=== PATIENT | female | born 1990 | race Caucasian/White ===

== ENCOUNTER 2017-04-25 23:32 | Emergency (ER) | payer OTHER ==
[2017-04-26] MEDS ORDERED: NORMAL SALINE 1000 ML 1,000 ML IV PRN (00:56)
[2017-04-26] MEDS ORDERED: METOCLOPRAMIDE HCL INJ/PF 10 MG/2 ML SDV IV ONE (00:56)
--- NOTE | 2017-04-26 00:59 | ER Document Report ---
ED General - General Chief Complaint: Nausea/Vomiting Stated Complaint: NAUSEA AND ABDOMINAL PAIN Time Seen by Provider: 04/26/17 00:51 Notes: Patient is a 26-year-old female who presents with complaints of vomiting and . She is 10 weeks . She says since she was 7 weeks she has had some nausea and intermittent vomiting. She says the last 24-48 hours her vomiting has been intractable and she cannot hold down to even her medications. She is prescribed likely just by her terrazzo tile setter. She has been unable to hold this down. She is also prescribed ranitidine which she cannot hold down. She has had no social abdominal pain. No diarrhea. No fevers. No other complaints at this time. No complications with this thus far. No vaginal bleeding. She has had ultrasounds for this which were normal per her history. She called her terrazzo tile setter kylah who told her to come to the ER. TRAVEL OUTSIDE OF THE [place] IN LAST 30 DAYS: No - Related Data Allergies/Adverse Reactions: No Known Allergies Allergy (Verified 04/25/17 23:57) Past Medical History - Social History Smoking Status: Never Smoker Frequency of alcohol use: None Drug Abuse: None Family History: Reviewed & Not Pertinent Renal/ Medical History: Denies: Hx Peritoneal Dialysis Review of Systems - Review of Systems Notes: My Normal Review Basic REVIEW OF SYSTEMS: CONSTITUTIONAL : Denies fever, chills, or sweats. Denies recent illness. CARDIOVASCULAR: Denies chest pain. RESPIRATORY: Denies cough, cold, or chest congestion. Denies shortness of breath, difficulty breathing, or wheezing. GASTROINTESTINAL: Denies abdominal pain. intractable vomiting. GENITOURINARY: Denies difficulty urinating, painful urination, burning, frequency, or blood in urine. FEMALE GENITOURINARY: Denies vaginal bleeding, abnormal or irregular periods. LMP: Currently . MUSCULOSKELETAL: Denies neck or back pain or joint pain or swelling. SKIN: Denies rash or skin lesions. NEUROLOGICAL: Denies altered mental status or loss of consciousness. Denies headache. Denies weakness or paralysis or loss of use of either side. Denies problems with gait or speech. Denies sensory or motor loss. ALL OTHER SYSTEMS REVIEWED AND NEGATIVE. Physical Exam - Vital signs Vitals: Temp Pulse Resp BP Pulse Ox 98.4 F 108 H 20 127/64 H 98 04/25/17 23:57 04/25/17 23:57 04/25/17 23:57 04/25/17 23:57 04/25/17 23:57 - Notes Notes: General Appearance: Well nourished, alert, cooperative, no acute distress, no obvious discomfort. Vitals: reviewed, See vital signs table. Head: no swelling or tenderness to the head Eyes: PERRL, EOMI, Conjuctiva clear Mouth: Dry mucous membranes Lungs: No wheezing, No rales, No rhonci, No accessory muscle use, good air exchange bilaterally. Heart: Normal rate, Regular rythm, No murmur, no rub Abdomen: Normal BS, soft, No rigidity, No abdominal tenderness, No guarding, no rebound, no abdominal masses, no organomegaly Extremities: strength 5/5 in all extremities, good pulses in all extremities, no swelling or tenderness in the extremities, no edema. Skin: warm, dry, appropriate color, no rash Neuro: speech clear, oriented x 3, normal affect, responds appropriately to questions. Course - Re-evaluation Re-evalutation: 04/26/17 03:32 Patient is feeling much improved. I did give her GI cocktail to the burning in her stomach. She was able hold this time without difficulty. Laboratory evaluation just showed some hypokalemia. Her potassium is 3.5. I informed her that she can take the 3 potassium pills over the next day and a half at home or she can just eat bananas and or other potassium containing foods and be rechecked by her terrazzo tile setter on Friday or Friday. I encouraged her return to ER immediately if she has recurrent vomiting, fevers, abdominal pain, or she feels unwell. Her urinalysis did show some leukocyte esterase. I will place her on Macrobid. I did send her urine for culture. - Vital Signs Vital signs: Temp Pulse Resp BP Pulse Ox 98.4 F 108 H 20 127/64 H 98 04/25/17 23:57 04/25/17 23:57 04/25/17 23:57 04/25/17 23:57 04/25/17 23:57 - Laboratory Result Diagrams: 04/26/17 01:15 04/26/17 01:15 Laboratory results interpreted by me: 04/26/17 04/26/17 04/26/17 01:00 01:15 01:15 WBC 11.7 H Absolute Neutrophils 8.8 H Sodium 136.6 L Potassium 3.5 L Carbon Dioxide 20 L Total Bilirubin 1.4 H Urine Ketones 80 H Ur Leukocyte Esterase LARGE H Discharge - Discharge Clinical Impression: Hyperemesis gravidarum, Hypokalemia UTI (urinary tract infection) Qualifiers: Urinary tract infection type: site unspecified Hematuria presence: without hematuria Qualified Code(s): N39.0 - Urinary tract infection, site not specified Condition: Good Disposition: HOME, SELF-CARE Additional Instructions: Hyperemesis Gravidarum Hyperemesis gravidarum is the medical term for severe vomiting during . We don't know exactly why it occurs, but it's a common problem. Dehydration can occur. This reduces blood flow to the placenta, decreasing the baby's nourishment. The baby will also become dehydrated. There can be harmful changes in blood sodium, potassium, or acid balance. Our goal is to correct, and prevent, dehydration. For severe cases, we give IV fluids. Antinausea medication will be prescribed. (Don't be concerned about " defects" -- the risk to you and your baby from the hyperemesis is the biggest problem. The antinausea medication is very safe at this stage of .) Call the doctor if you have vaginal bleeding, abdominal pain, severe lightheadedness or weakness, or other alarming symptoms. Please return to the ER immediately if you have recurrent vomiting, fevers, any abdominal pain, or feel unwell. Please follow up with your OB doctor on Friday or Friday. Prescriptions: Metoclopramide HCl [Reglan 10 mg Tablet] 1 tab PO ASDIR PRN #25 tablet PRN Reason: Nitrofurantoin/Nitrofuran Mac [Macrobid 100 mg Capsule] 1 tab PO BID #10 capsule Potassium Chloride 10 meq PO DAILY #3 capsule.er Forms: Return to Work
[2017-04-26 01:38] LABS: ABSOLUTE LYMPHOCYTES (AUTO) 1.9 10^3/uL (0.5-4.7); ABSOLUTE NEUT (AUTO) 8.8 10^3/uL (1.7-8.2); BASOPHILS % (AUTO) 0.4 % (0-2); EOSINOPHILS % (AUTO) 0.2 % (0-6); HEMOGLOBIN 13.1 g/dL (12.0-15.5); HGB HCT DIFFERENCE 0.3; LYMPHOCYTES % (AUTO) 16.1 % (13-45); MEAN CORPUSCULAR HEMOGLOBIN 29.1 pg (27.0-33.4); MEAN CORPUSCULAR HGB CONC 33.6 g/dL (32.0-36.0); MEAN CORPUSCULAR VOLUME 87 fl (80-97); MONOCYTES % (AUTO) 8.2 % (3-13); RED CELL DISTRIBUTION WIDTH 12.9 % (11.5-14.0); SEGMENTED NEUTROPHILS % (AUTO) 75.1 % (42-78); WHITE BLOOD COUNT 11.7 10^3/uL (4.0-10.5)
[2017-04-26 01:47] LABS: AMORPHOUS SEDIMENT,URINE TRACE /HPF; APPEARANCE,URINE CLOUDY; BILIRUBIN,URINE NEGATIVE (NEGATIVE); GLUCOSE, URINE NEGATIVE (NEGATIVE); KETONES,URINE 80 mg/dL (NEGATIVE); LEUKOCYTE ESTERASE,URINE LARGE (NEGATIVE); NITRITE,URINE NEGATIVE (NEGATIVE); PROTEIN,URINE NEGATIVE (NEGATIVE); URINE SPECIFIC GRAVITY 1.017; UROBILINOGEN,URINE NEGATIVE mg/dL (<2.0)
[2017-04-26 01:48] LABS: ALANINE AMINOTRANSFERASE 31 U/L (9-52); ALBUMIN 4.4 g/dL (3.5-5.0); ALKALINE PHOSPHATASE 59 U/L (38-126); ANION GAP 13 (5-19); ASPARTATE AMINO TRANSFERASE 21 U/L (14-36); BILIRUBIN,DIRECT 0.3 mg/dL (0.0-0.4); BILIRUBIN,TOTAL 1.4 mg/dL (0.2-1.3); BLOOD UREA NITROGEN 7 mg/dL (7-20); CALCIUM 10.2 mg/dL (8.4-10.2); CARBON DIOXIDE 20 mmol/L (22-30); CHLORIDE 104 mmol/L (98-107); CREATININE RESULT 0.54 mg/dL (0.52-1.25); GLUCOSE 82 mg/dL (75-110); POTASSIUM 3.5 mmol/L (3.6-5.0); SODIUM 136.6 mmol/L (137-145); TOTAL PROTEIN 7.4 g/dL (6.3-8.2)
[2017-04-26] MEDS ORDERED: LIDOCAINE 2% VISCOUS SOLN 20 ML UDCUP PO ONE (02:44)
[2017-04-26] MEDS ORDERED: MAG HYDROX/AL HYDROX/SIMETH SUSP 30 ML UDCUP PO ONE (02:44)
[2017-04-26 03:58] VITALS: BP 124/70
== END 2017-04-26 04:00 | disposition home or self-care (01) ==
LOC: ER 23:32
DX: O23.41 Unspecified infection of urinary tract in pregnancy, first trimester (principal); N39.0 Urinary tract infection, site not specified; O21.0 Mild hyperemesis gravidarum; Z3A.10 10 weeks gestation of pregnancy; R11.2 Nausea with vomiting, unspecified; R10.9 Unspecified abdominal pain
CPT/HCPCS: 99283; 96361; 96374; 36415; 87086; 85025; 87088; 80053; 81001; J3490; J2765; J7030

== ENCOUNTER 2017-11-19 17:01 | Inpatient (IN) | payer OTHER ==
[2017-11-19] MEDS ORDERED: RINGERS SOLUTION,LACTATED 1,000 ML IV PRN (17:20)
[2017-11-19] MEDS ORDERED: PENICILLIN G POTASSIUM 5,000,000 UNIT in DEXTROSE 5%-WATER 100 ML IV ONE (17:20)
[2017-11-19] MEDS ORDERED: RINGERS SOLUTION,LACTATED 1,000 ML IV ONE (17:20)
[2017-11-19] MEDS ORDERED: PENICILLIN G-K 5 MILLION UNIT VIAL ONE ×2 (17:38→21:34)
--- NOTE | 2017-11-19 17:40 | Admission Physical ---
Datetime Report Generated by CPN: 11/19/2017 17:39 CURRENT ADMISSION Chief Complaint: Uterine Contractions; Suspected Ruptured Membranes Indication for Induction: Term, Intrauterine Admit Plan: Admit to Unit ALLERGIES Medication Allergies: milk (11/19/2017) PHYSICAL EXAM General: Normal HEENT: Normal Neurologic: Normal Thyroid: Normal Heart: Normal Lungs: Normal Breast: Normal Back: Normal Abdomen: Normal Genitourinary Exam: Normal Extremities: Normal DTRs: Normal Pelvic Type: Adequate Vital Signs: Reviewed VAGINAL EXAM Dilatation: 5 Effacement: 90 Station: -1 FETUS A Variability: Moderate 6-25bpm Decelerations: None Presentation: Vertex Admit Comment: 27 yo presents with increased contractions and possible rupture of membranes EDC 11/20/17 EGA 39.6 allergies:milk abdomen nontender FHTs 130s reactive cvx /-1 GBS positive High weight gain in Rubella non immune admit gbs prophylaxis pain management prn risks/benefits reviewed- learning verbalized INFORMED CONSENT Informed Consent Obtained: Vaginal Delivery; Risks, Benefits and Alternatives Discussed Assignment: Carlos Haro MD Signature: with User ID: [email or web address] : with User ID: [email or web address]
[2017-11-19 17:46] LABS: APPEARANCE,URINE SLIGHTLY-CLOUDY; BILIRUBIN,URINE NEGATIVE (NEGATIVE); COLOR,URINE YELLOW; GLUCOSE, URINE NEGATIVE (NEGATIVE); KETONES,URINE NEGATIVE (NEGATIVE); LEUKOCYTE ESTERASE,URINE TRACE (NEGATIVE); NITRITE,URINE NEGATIVE (NEGATIVE); PROTEIN,URINE NEGATIVE (NEGATIVE); URINE SPECIFIC GRAVITY 1.008; UROBILINOGEN,URINE NEGATIVE mg/dL (<2.0)
[2017-11-19 18:00] LABS: URINE AMPHETAMINES SCREEN NEGATIVE; URINE BARBITURATES SCREEN NEGATIVE; URINE BENZODIAZEPINES SCREEN NEGATIVE; URINE COCAINE SCREEN NEGATIVE; URINE MARIJUANA (THC) SCREEN NEGATIVE; URINE METHADONE SCREEN NEGATIVE; URINE PHENCYCLIDINE SCREEN NEGATIVE
[2017-11-19] MEDS ORDERED: LIDOCAINE 1% INJ-PF (10 MG/ML) 30 ML SDV ONE (18:39)
[2017-11-19] MEDS ORDERED: OXYTOCIN/NORMAL SALINE 20 UNIT/1,000 ML RTUINJ ONE (18:39)
[2017-11-19] MEDS ORDERED: MISOPROSTOL 0.2 MG TABLET ONE (18:39)
[2017-11-19 19:29] LABS: HEMATOCRIT 38.4 % (36.0-47.0); HEMOGLOBIN 12.9 g/dL (12.0-15.5); MEAN CORPUSCULAR HEMOGLOBIN 29.7 pg (27.0-33.4); MEAN CORPUSCULAR HGB CONC 33.7 g/dL (32.0-36.0); MEAN CORPUSCULAR VOLUME 88 fl (80-97); PLATELET COUNT 202 10^3/uL (150-450); RED BLOOD COUNT 4.36 10^6/uL (3.72-5.28); RED CELL DISTRIBUTION WIDTH 13.9 % (11.5-14.0); WHITE BLOOD COUNT 20.9 10^3/uL (4.0-10.5)
[2017-11-19 19:47] LABS: ABSOLUTE MONOCYTES # (MANUAL) 1.5 10^3/uL (0.1-1.4); ABSOLUTE NEUTROPHILS# (MANUAL) 18.4 10^3/uL (1.7-8.2); BASOPHILS % (MANUAL) 0 % (0-2); EOSINOPHILS % (MANUAL) 0 % (0-6); LYMPHOCYTES % (MANUAL) 5 % (13-45); MONOCYTES % (MANUAL) 7 % (3-13); SEGMENTED NEUTROPHILS % (MAN) 88 % (42-78); TOTAL CELLS COUNTED 100
[2017-11-19 19:55] LABS: PLATELET COMMENT ADEQUATE; RBC MORPHOLOGY COMMENT NORMO-CYTIC/CHROMIC
[2017-11-19] MEDS ORDERED: PENICILLIN G POTASSIUM 2,500,000 UNIT in DEXTROSE 5%-WATER 50 ML IV SCH (22:21)
[2017-11-20] MEDS ORDERED: LIDOCAINE 1% INJ-PF (10 MG/ML) 30 ML SDV ONE (00:20)
[2017-11-20] MEDS ORDERED: DIPH/PERTUSS(ACELL)/TETANUS VAC/PF 0.5 ML SYR (>=10YO) IM PRN (00:37)
[2017-11-20] MEDS ORDERED: MEASLES,MUMPS&RUBELLA VACC/PF 0.5 ML VIAL SUBCUT PRN (00:37)
[2017-11-20] MEDS ORDERED: PROMETHAZINE HCL 25 MG TABLET PO PRN (00:37)
[2017-11-20] MEDS ORDERED: DIBUCAINE 1% OINTMENT 28 GM TP PRN (00:37)
[2017-11-20] MEDS ORDERED: PROMETHAZINE HCL 25 MG SUPP.RECT PR PRN (00:37)
[2017-11-20] MEDS ORDERED: OXYTOCIN/NORMAL SALINE 20 UNIT/1,000 ML RTUINJ IV PRN (00:37)
[2017-11-20] MEDS ORDERED: DIPHENHYDRAMINE HCL 25 MG CAPSULE PO PRN (00:37)
[2017-11-20] MEDS ORDERED: PSEUDOEPHEDRINE HCL 30 MG TABLET PO PRN (00:37)
[2017-11-20] MEDS ORDERED: ACETAMINOPHEN WITH CODEINE #3 TABLET PO PRN (00:37)
[2017-11-20] MEDS ORDERED: NA PHOS,M-B/NA PHOS,DI-BA (ADULT) 133 ML ENEMA PR PRN (00:37)
[2017-11-20] MEDS ORDERED: BENZOCAINE/MENTHOL AEROSOL SPRAY 56 ML TOP PRN (00:37)
[2017-11-20] MEDS ORDERED: ZOLPIDEM TARTRATE 5 MG TABLET PO PRN (00:37)
[2017-11-20] MEDS ORDERED: PROMETHAZINE HCL INJ 25 MG/1 ML VIAL IV PRN (00:37)
[2017-11-20] MEDS ORDERED: MAGNESIUM HYDROXIDE SUSP 30 ML UDCUP PO PRN (00:37)
[2017-11-20] MEDS ORDERED: ACETAMINOPHEN 650 MG SUPP.RECT PR PRN (00:37)
--- NOTE | 2017-11-20 02:43 | Delivery Summary ---
Del Sum A-C Datetime Report Generated by CPN: 11/20/2017 02:42 DELIVERY PERSONNEL DELIVERY PERSONNEL: [id number] Delivery Doctor:: Carlos Haro MD Labor and Delivery Nurse:: Rashi Schwartz RN Labor and Delivery Nurse:: Kim Paul RN Laborer Pipeline/STEAM CLOTHES PRESS OPERATOR: Ev Ochoa, ENGRAVER HAND SOFT METALS MATERNAL INFORMATION Delivery Anesthesia: Local Medications During Delivery: Lidocaine used after delivery for repair of perineum. Medications After Delivery: Pitocin Bolus-Please Comment Meds After Delivery Comment: 20 units pitocin after placenta delivery Estimated Blood Loss (ml): 200 Maternal Complications: None Provider Comments: male apgars 9/9 intact 3 vessel cord LABOR SUMMARY EDC: 11/20/2017 00:00 No. Babies in Womb: 1 Attempted: No Labor Anesthesia: None LABOR INFORMATION Reason for Induction: Not Applicable Onset of Labor: 11/19/2017 17:25 Complete Dilatation: 11/19/2017 23:19 Oxytocin: N/A Group B Beta Strep: Positive Antibiotics # of Doses: 2 Antibiotics Time of Last Dose: 2139 Name of Antibiotic Given: Penicillin Steroids Given: None Reason Steroids Not Administered: Not Applicable MEMBRANES Membranes Rupture Method: Spontaneous Rupture of Membranes: 11/19/2017 23:19 Length of Rupture (hr): 0.92 Amniotic Fluid Color: Clear Amniotic Fluid Amount: Large Amniotic Fluid Odor: Normal STAGES OF LABOR Stage 1 hr: 5 Stage 1 min: 54 Stage 2 hr: 0 Stage 2 min: 55 Stage 3 hr: 0 Stage 3 min: 6 Total Time in Labor hr: 6 Total Time in Labor min: 55 VAGINAL DELIVERY Episiotomy: None Laceration #1: Perineal Laceration Extension #1: First Degree Laceration Repair: Yes Laceration Repair Note: 20 vicryl Sponge Count Correct: N/A Sharps Count Correct: Yes CSECTION DELIVERY Primary Indication: N/A Secondary Indication: N/A CSection Urgency: N/A CSection Incidence: N/A Labor: N/A Elective: N/A CSection Incision: N/A BABY A INFORMATION Delivery Date/Time: 11/20/2017 00:14 Method of Delivery: Vaginal Born in Route : No : N/A Forceps: N/A Vacuum Extraction: N/A Shoulder Dystocia : No PRESENTATION/POSITION BABY A Presentation: Cephalic Cephalic Presentation: Vertex Vertex Position: OA Breech Presentation: N/A PLACENTA INFORMATION BABY A Placenta Delivery Time : 11/20/2017 00:20 Placenta Method of Delivery: Spontaneous Placenta Status: Delivered SCORES BABY A Heart Rate 1 min: >100 bpm Resp Effort 1 min: Good Cry Reflex Irritability 1 min: Cough or Sneeze or Pulls Away Muscle Tone 1 min: Active Motion Color 1 min: Body [place], Extremities Blue Resuscitation Effort 1 min: Tactile Stimulation SCORE 1 MIN: 9 Heart Rate 5 min: >100 bpm Resp Effort 5 min: Good Cry Reflex Irritability 5 min: Cough or Sneeze or Pulls Away Muscle Tone 5 min: Active Motion Color 5 min: Body [place], Extremities Blue Resuscitation Effort 5 min: Tactile Stimulation SCORE 5 MIN: 9 INFANT INFORMATION BABY A Gestational Age at Delivery: 39.6 Gestational Status: Full Term- 39- 40.6 Weeks Outcome : Liveborn Infant Condition : Stable Sex: Male IDENTIFICATION BABY A Infant Verification Date/Time: 11/20/2017 00:25 ID Band Number: [id number] Mother's Name Verified: Yes RN Verifying Infant: S. Lattibeaamelieir, RNC Additional Verifying Personnel: [email or web address], US WEIGHT/LENGTH BABY A Birthweight (gm): 3780 Infant Weight (lb): 8 Weight (oz): 5 Length (in): 21.00 Length (cm): 53.34 CORD INFORMATION BABY A No. Cord Vessels: 3 Nuchal Cord : N/A Cord Blood Taken: Yes-For Storage (Mom's Blood type +) Infant Suction: Mouth; Nose ASSESSMENT BABY A Infant Complications: None Physical Findings at Delivery: Other Physical Findings- Other: see nursery notes Respirations: Appears Normal Skin to Skin: Yes Skin to Skin Time (min): 80 Monitor Tech/ALS Called : No Infant Care By: SLeandro Paul, C Transferred To: Remains with Mother BABY B INFORMATION : N/A SIGNATURES Signature: with User ID: [email or web address]
[2017-11-20] MEDS: IBUPROFEN 800 MG TABLET PO SCH ×3 (05:04→21:51)
--- NOTE | 2017-11-20 09:21 | PDOC DISCHARGE SUMMARY ---
Final Diagnosis Discharge Date: 11/20/17 - Final Diagnosis (1) Vaginal delivery Is this a current diagnosis for this admission?: Yes Discharge Data - Discharge Medication Prescriptions: Docusate Sodium [Colace 100 mg Capsule] 100 mg PO BID #60 capsule Ibuprofen [Motrin 800 mg Tablet] 800 mg PO Q8 #60 tablet Home Medications: Esomeprazole Magnesium [Nexium 24Hr] 1 cap PO DAILY 11/19/17 95/Iron Fum/Folic/Dha [ + Dha Combo Pack] 1 cap PO DAILY Docusate Sodium [Colace 100 mg Capsule] 100 mg PO BID #60 capsule 11/20/17 Ibuprofen [Motrin 800 mg Tablet] 800 mg PO Q8 #60 tablet 11/20/17 Gestational Age: 39.6 Reason(s) for Admission: Onset of Labor, Group B Strep Positive Procedures: NST Intrapartum Procedure(s): Spontaneous Vaginal Delivery - Data Baby 1 Male at 1 minute: 9 at 5 minutes: 9 Weight: 3780 kg Home with Mother: Yes Complications: No - Diagnosis Test Laboratory: Temp Pulse Resp BP Pulse Ox 98.1 F 94 15 113/64 97 11/20/17 07:51 11/20/17 07:51 11/20/17 07:51 11/20/17 07:51 11/20/17 07:51 11/19/17 11/19/17 17:10 19:03 RBC 4.36 Hgb 12.9 Hct 38.4 Urine Opiates Screen NEGATIVE - Discharge information/Instructions Discharge Activity: Activity As Tolerated, Pelvic Rest, No tub bath Discharge Diet: Regular Disposition: HOME, SELF-CARE Follow up with: [facility] in: 4, Weeks
[2017-11-20 09:25] LABS: HEMATOCRIT 31.8 % (36.0-47.0); MEAN CORPUSCULAR HEMOGLOBIN 29.7 pg (27.0-33.4); MEAN CORPUSCULAR HGB CONC 33.8 g/dL (32.0-36.0); MEAN CORPUSCULAR VOLUME 88 fl (80-97); PLATELET COUNT 197 10^3/uL (150-450); RED BLOOD COUNT 3.62 10^6/uL (3.72-5.28); RED CELL DISTRIBUTION WIDTH 14.1 % (11.5-14.0); WHITE BLOOD COUNT 25.3 10^3/uL (4.0-10.5)
--- NOTE | 2017-11-20 09:36 | PDOC PROGRESS REPORT ---
Subjective-OB Progress Note for:: 11/20/17 Subjective: s/p day #1 Denies concerns, states lochia is stable, voiding without difficulty, pain well controlled. Physical Exam (OB) Vital Signs: Temp Pulse Resp BP Pulse Ox 98.1 F 94 15 113/64 97 11/20/17 07:51 11/20/17 07:51 11/20/17 07:51 11/20/17 07:51 11/20/17 07:51 Intake & Output 11/19/17 11/20/17 11/21/17 06:59 06:59 06:59 Weight 78.7 kg Baby 1 Male 3780 kg - Lochia Lochia Amount: Scant < 10 ml Lochia Color: Rubra/Red - Abdomen Description: Tender, Soft, Flat Hernia Present: No Fundal Description: Firm, Midline Fundal Height: u/u - u/2 Objective-Diagnostic Laboratory: 11/19/17 11/19/17 11/19/17 17:10 19:03 19:03 WBC 20.9 H RBC 4.36 Hgb 12.9 Hct 38.4 MCV 88 MCH 29.7 MCHC 33.7 RDW 13.9 Plt Count 202 Seg Neutrophils % Not Reportable Lymphocytes % Not Reportable Monocytes % Not Reportable Eosinophils % Not Reportable Basophils % Not Reportable Absolute Neutrophils Not Reportable Absolute Lymphocytes Not Reportable Absolute Monocytes Not Reportable Absolute Eosinophils Not Reportable Absolute Basophils Not Reportable Urine Color YELLOW Urine Appearance SLIGHTLY-CLOUDY Urine pH 7.0 Ur Specific [place] 1.008 Urine Protein NEGATIVE Urine Glucose (UA) NEGATIVE Urine Ketones NEGATIVE Urine Blood SMALL H Urine Nitrite NEGATIVE Ur Leukocyte Esterase TRACE H Blood Type A POSITIVE Antibody Screen NEGATIVE Assessment and Plan(PN) - Assessment and Plan (1) Vaginal delivery Is this a current diagnosis for this admission?: Yes Plan: routine pp care - Time Spent with Patient Time with patient: Less than 15 minutes Critical Time spent with patient: Less than 15 minutes Medications reviewed and adjusted accordingly: Yes - Disposition Anticipated Discharge: Home Within: within 24 hours
[2017-11-20] MEDS: FERROUS SULFATE 325 MG TABLET PO SCH ×2 (09:57→17:30)
[2017-11-20] MEDS: SENNOSIDES/DOCUSATE 8.6-50 MG 1 EACH TABLET PO SCH (09:57)
[2017-11-20] MEDS: DOCUSATE SODIUM 100 MG CAPSULE PO SCH ×2 (09:58→17:31)
[2017-11-20] MEDS: FAMOTIDINE 20 MG TABLET PO SCH ×2 (09:58→21:51)
[2017-11-20] MEDS: PRENATAL VITAMIN W DHA CAPSULE PO SCH (09:58)
[2017-11-20] MEDS: GLYCERIN/WITCH HAZEL LEAF 1 EACH MED..PAD TP PRN ×2 (09:58→22:01)
[2017-11-20 10:07] LABS: HEMOGLOBIN 10.8 g/dL (12.0-15.5)
[2017-11-21] MEDS: IBUPROFEN 800 MG TABLET PO SCH ×3 (05:30→22:09)
[2017-11-21 07:24] LABS: ABSOLUTE BASOPHILS # (AUTO) 0.1 10^3/uL (0.0-0.2); ABSOLUTE EOSINOPHILS # (AUTO) 0.1 10^3/uL (0.0-0.6); ABSOLUTE LYMPHOCYTES (AUTO) 2.6 10^3/uL (0.5-4.7); ABSOLUTE MONOCYTES (AUTO) 1.3 10^3/uL (0.1-1.4); ABSOLUTE NEUT (AUTO) 13.9 10^3/uL (1.7-8.2); BASOPHILS % (AUTO) 0.4 % (0-2); EOSINOPHILS % (AUTO) 0.4 % (0-6); HEMATOCRIT 27.7 % (36.0-47.0); HEMOGLOBIN 9.4 g/dL (12.0-15.5); LYMPHOCYTES % (AUTO) 14.5 % (13-45); MEAN CORPUSCULAR HEMOGLOBIN 29.9 pg (27.0-33.4); MEAN CORPUSCULAR HGB CONC 33.8 g/dL (32.0-36.0); MEAN CORPUSCULAR VOLUME 88 fl (80-97); MONOCYTES % (AUTO) 7.2 % (3-13); PLATELET COUNT 196 10^3/uL (150-450); RED BLOOD COUNT 3.13 10^6/uL (3.72-5.28); RED CELL DISTRIBUTION WIDTH 14.2 % (11.5-14.0); SEGMENTED NEUTROPHILS % (AUTO) 77.5 % (42-78); TOTAL CELLS COUNTED % (AUTO) 100 %
[2017-11-21] MEDS: FAMOTIDINE 20 MG TABLET PO SCH ×2 (09:40→22:10)
[2017-11-21] MEDS: FERROUS SULFATE 325 MG TABLET PO SCH ×2 (09:40→17:59)
[2017-11-21] MEDS: PRENATAL VITAMIN W DHA CAPSULE PO SCH (09:40)
[2017-11-21] MEDS: DOCUSATE SODIUM 100 MG CAPSULE PO SCH ×2 (09:40→17:58)
[2017-11-21] MEDS: SENNOSIDES/DOCUSATE 8.6-50 MG 1 EACH TABLET PO SCH (09:40)
--- NOTE | 2017-11-21 10:58 | PDOC PROGRESS REPORT ---
Subjective-OB Progress Note for:: 11/21/17 Subjective: states she is tolerating diet, bleeding slowing, pain controlled with current meds. denies needs. reports well but delivered early yesterday morning and wants to stay for more help with . Physical Exam (OB) Vital Signs: Temp Pulse Resp BP Pulse Ox 98.2 F 86 18 113/62 100 11/21/17 08:08 11/21/17 08:08 11/21/17 08:08 11/21/17 08:08 11/21/17 08:08 Intake & Output 11/20/17 11/21/17 11/22/17 06:59 06:59 06:59 Weight 78.7 kg Baby 1 Male 3780 kg - Abdomen Description: Soft, Round Hernia Present: No Fundal Description: Firm, Midline Fundal Height: u/u - u/2 - Abdominal Tenderness: Nontender - Extremities Lower extremities: Brayan's sign - neg Calf: Normal, Nontender Objective-Diagnostic Laboratory: 11/21/17 06:51 11/21/17 06:51 WBC 18.0 H RBC 3.13 L Hgb 9.4 L Hct 27.7 L MCV 88 MCH 29.9 MCHC 33.8 RDW 14.2 H Plt Count 196 Seg Neutrophils % 77.5 Lymphocytes % 14.5 Monocytes % 7.2 Eosinophils % 0.4 Basophils % 0.4 Absolute Neutrophils 13.9 H Absolute Lymphocytes 2.6 Absolute Monocytes 1.3 Absolute Eosinophils 0.1 Absolute Basophils 0.1 Assessment and Plan(PN) - Assessment and Plan (1) Vaginal delivery Is this a current diagnosis for this admission?: Yes - Time Spent with Patient Time with patient: Less than 15 minutes Medications reviewed and adjusted accordingly: Yes - Disposition Anticipated Discharge: Home Within: within 24 hours
[2017-11-22] MEDS: IBUPROFEN 800 MG TABLET PO SCH (06:36)
[2017-11-22 08:48] VITALS: BP 107/67
--- NOTE | 2017-11-22 09:42 | PDOC DISCHARGE SUMMARY ---
Final Diagnosis Discharge Date: 11/22/17 - Final Diagnosis (1) Vaginal delivery Is this a current diagnosis for this admission?: Yes Discharge Data - Discharge Medication Prescriptions: Docusate Sodium [Colace 100 mg Capsule] 100 mg PO BID #60 capsule Ibuprofen 800 mg PO Q8HP PRN #90 tablet PRN Reason: Mild Pain Ibuprofen [Motrin 800 mg Tablet] 800 mg PO Q8 #60 tablet Home Medications: 95/Iron Fum/Folic/Dha [ + Dha Combo Pack] 1 cap PO DAILY Docusate Sodium [Colace 100 mg Capsule] 100 mg PO BID #60 capsule 11/20/17 Ibuprofen [Motrin 800 mg Tablet] 800 mg PO Q8 #60 tablet 11/20/17 Ibuprofen 800 mg PO Q8HP PRN #90 tablet 11/22/17 Gestational Age: 39+6 Reason(s) for Admission: Onset of Labor Procedures: NST Intrapartum Procedure(s): Spontaneous Vaginal Delivery Complication(s): Laceration-Vaginal Laceration-Degree: 1st - Diagnosis Test Laboratory: Temp Pulse Resp BP Pulse Ox 97.6 F 89 18 107/67 99 11/22/17 08:55 11/22/17 08:55 11/22/17 08:55 11/22/17 08:55 11/22/17 08:55 11/19/17 11/19/17 11/20/17 17:10 19:03 09:16 RBC 4.36 3.62 L Hgb 12.9 10.8 L D Hct 38.4 31.8 L Urine Opiates Screen NEGATIVE 11/21/17 06:51 RBC 3.13 L Hgb 9.4 L Hct 27.7 L Urine Opiates Screen - Discharge information/Instructions Discharge Activity: Activity As Tolerated, Balance Activity w/Rest, Pelvic Rest Discharge Diet: Regular Disposition: HOME, SELF-CARE Follow up with: [facility] in: 4, Weeks
[2017-11-22] MEDS: PRENATAL VITAMIN W DHA CAPSULE PO SCH (10:20)
[2017-11-22] MEDS: SENNOSIDES/DOCUSATE 8.6-50 MG 1 EACH TABLET PO SCH (10:21)
[2017-11-22] MEDS: FERROUS SULFATE 325 MG TABLET PO SCH (10:21)
[2017-11-22] MEDS: DOCUSATE SODIUM 100 MG CAPSULE PO SCH (10:21)
[2017-11-22] MEDS: FAMOTIDINE 20 MG TABLET PO SCH (10:21)
== END 2017-11-22 12:10 | disposition home or self-care (01) | DRG 775 ==
LOC: LC 17:01 → LR 17:45 → 2N 11-20 03:05
PROVIDERS: ADMIT Obstetrics & Gynecology Gynecology; ATTEND Obstetrics & Gynecology Gynecology
PROC: 10E0XZZ Delivery of Products of Conception, External Approach (ICD-10-PCS; principal; 2017-11-19)
PROC: 0HQ9XZZ Repair Perineum Skin, External Approach (ICD-10-PCS; 2017-11-19)
PROC: 4A1HXCZ Monitoring of Products of Conception, Cardiac Rate, External Approach (ICD-10-PCS; 2017-11-19)
DX: O99.824 Streptococcus B carrier state complicating childbirth (principal); O70.0 First degree perineal laceration during delivery; Z3A.39 39 weeks gestation of pregnancy; Z37.0 Single live birth
CPT/HCPCS: 36415; 80307; 81005; 85025; 85027; 86592; 86850; 86900; 86901; 94760; J2540; J2590; J3490; Q0114